=== PATIENT | female | born 1995 | race Two or more races ===

== ENCOUNTER 2021-03-21 02:26 | Emergency (ER) | payer MEDICAID ==
[~2021-03-21] VITALS: Ht 162.6 cm; Wt 94.3 kg
[2021-03-21] MEDS ORDERED: SODIUM CHLORIDE 0.9% 1,000 ML IV ONE (02:45)
[2021-03-21 03:26] LABS: Basophils # (auto) 0 10 ^3/uL (0-0.2); Eosinophils # (auto) 0.2 10 ^3/uL (0-0.8); Neutrophils # (auto) 5.2 10 ^3/uL (1.6-8.6); Nucleated Red Blood Cells % 0.1 %
[2021-03-21 03:29] LABS: Basophils % (auto) 0.5 % (0.0-2.0); Hematocrit 40.9 % (36.0-46.0); Hemoglobin 13.3 g/dL (12.2-16.2); Lymphocytes % (auto) 25.5 % (10.0-50.0); Mean Corpuscular Hemoglobin 26.4 pg (28.0-32.0); Mean Corpuscular Hgb Conc. 32.4 g/dL (32.0-36.0); Mean Corpuscular Volume 81.5 fL (80.0-100.0); Monocytes # (auto) 0.6 10 ^3/uL (0-1.3); Monocytes % (auto) 6.9 % (0.0-12.0); Neutrophils % (auto) 65.1 % (37.0-80.0); Red Blood Cells 5.02 10^6/uL (4.0-5.20); Red Cell Distribution Width 15.2 % (11.8-14.3)
[2021-03-21 03:45] LABS: Albumin 3.3 g/dL (3.4-5.0); Calcium 8.4 mg/dL (8.5-10.1); Potassium 3.5 mmol/L (3.5-5.1)
[2021-03-21 03:48] LABS: Bilirubin, Total 0.4 mg/dL (0.2-1.0); Total Protein 7.4 g/dL (6.4-8.2)
[2021-03-21 03:57] LABS: BUN/Creatinine Ratio 17.2
[2021-03-21 05:45] VITALS: BP 117/77
== END 2021-03-21 05:53 | disposition home or self-care (01) ==
LOC: ER 02:26 → EDBD 02:26 → ER 05:53
DX: K85.10 Biliary acute pancreatitis without necrosis or infection (principal)
CPT/HCPCS: 36415; 76705; 80053; 82150; 83690; 85025; 96360; 96361; 99284; J7030